=== PATIENT | female | born 1980 | race Hispanic/Latino ===

== ENCOUNTER 2018-07-07 14:17 | Emergency (ER) | payer SELFPAY ==
[2018-07-07] MEDS ORDERED: HYDROcodone/Acetaminophen 5/325 mg Tablet ONE (16:46)
[2018-07-07] MEDS ORDERED: Adacel (T-DAP) 0.5 ML VIAL ONE (16:46)
--- NOTE | 2018-07-07 17:17 | CT ---
CT BRAIN WITHOUT CONTRAST: 07/07/18 HISTORY: Trauma. Head injury. No loss of consciousness. Headache and pain in the neck. FINDINGS: Comparison made with exam of 03/04/12. No evidence of acute infarct, hemorrhage, midline shift or abnormal extra-axial fluid collections are seen. The ventricular size is normal and the basilar cisterns patent. The bony calvarium is intact. There is mucosal disease in the paranasal sinuses. IMPRESSION: No CT evidence of acute intracranial process. POS: [facility]
== END 2018-07-07 17:58 | disposition home or self-care (01) ==
LOC: ERS 14:17
DX: S01.01XA Laceration without foreign body of scalp, initial encounter (principal); E11.9 Type 2 diabetes mellitus without complications; E78.5 Hyperlipidemia, unspecified; I10 Essential (primary) hypertension; F17.210 Nicotine dependence, cigarettes, uncomplicated; Z79.84 Long term (current) use of oral hypoglycemic drugs
CPT/HCPCS: 12001; 70450; 90471; 90715

== ENCOUNTER 2019-01-15 07:10 | Emergency (ER) | payer SELFPAY ==
[2019-01-15] MEDS ORDERED: Ketorolac Tromethamine 60 MG/2 ML VIAL ONE (07:31)
== END 2019-01-15 07:36 | disposition home or self-care (01) ==
LOC: SCSER 07:10
DX: K04.7 Periapical abscess without sinus (principal); E11.9 Type 2 diabetes mellitus without complications; F17.210 Nicotine dependence, cigarettes, uncomplicated; Z79.84 Long term (current) use of oral hypoglycemic drugs
CPT/HCPCS: 99282; J1885

== ENCOUNTER 2019-04-13 07:41 | Outpatient (CLI) | payer MEDICAID ==
--- NOTE | 2019-04-13 08:49 | ULT ---
PELVIC SONOGRAM TRANSABDOMINAL AND TRANSVAGINAL IMAGING: HISTORY: Pelvic pain. FINDINGS: The urinary bladder is decompressed. Uterus has a heterogeneous echotexture and is 9.1 cm. Endometr ium is 0.7 cm. No free fluid. The right ovary measures up to 5.0 cm with a dominant follicle. Good color and spectral Doppler flow . Left ovary not visualized with transabdominal or transvaginal imaging. IMPRESSION: No significant abnormalities are demonstrated. POS: [facility]
== END 2019-04-13 07:42 | disposition home or self-care (01) ==
LOC: BICULT 07:41
DX: R10.2 Pelvic and perineal pain (principal)
CPT/HCPCS: 76856

== ENCOUNTER 2019-07-06 17:26 | Emergency (ER) | payer MEDICAID ==
[2019-07-06 18:12] LABS: Bilirubin Negative (Negative); Blood, Urine Negative (Negative); Clarity Clear (Clear); Glucose, Urine (Dipstick) 250 mg/dL (Negative); Leukocyte Negative (Negative); Nitrite Negative (Negative); Protein, Urine (Dipstick) Negative (Neg-Trace); Urobilinogen 0.2 mg/dL (Less than 2)
== END 2019-07-06 19:07 | disposition home or self-care (01) ==
LOC: SCSER 17:26
DX: O99.89 Other specified diseases and conditions complicating pregnancy, childbirth and the puerperium (principal); R10.2 Pelvic and perineal pain; O99.281 Endocrine, nutritional and metabolic diseases complicating pregnancy, first trimester; E78.5 Hyperlipidemia, unspecified; O10.911 Unspecified pre-existing hypertension complicating pregnancy, first trimester; O99.341 Other mental disorders complicating pregnancy, first trimester; F41.9 Anxiety disorder, unspecified; O24.111 Pre-existing type 2 diabetes mellitus, in pregnancy, first trimester; O99.331 Smoking (tobacco) complicating pregnancy, first trimester; F17.210 Nicotine dependence, cigarettes, uncomplicated; Z3A.01 Less than 8 weeks gestation of pregnancy; Z79.84 Long term (current) use of oral hypoglycemic drugs
CPT/HCPCS: 36415; 36416; 81003; 84702

== ENCOUNTER 2019-07-09 15:09 | Emergency (ER) | payer MEDICAID, OTHER, SELFPAY ==
[2019-07-09 16:39] LABS: #Basophils 0.1 thou/uL (0.0-0.2); #Eosinphils 0.3 thou/uL (0.0-0.7); #Lymphocytes 3.3 thou/uL (1.20-3.40); #Monocytes 0.6 thou/uL (0.11-0.59); #Neutrophils 8.8 thou/uL (1.40-6.50); %Basophils 1.1 % (0.0-1.0); %Eosinophils 1.9 % (0.0-10.0); %Lymphocytes 25.2 % (21.0-51.0); %Monocytes 4.4 % (0.0-10.0); %Neutrophils 67.3 % (42.0-75.0); Hemoglobin 13.9 g/dL (12.0-16.0); Mean Corpuscular HGB CONC 33.6 g/dL (32.0-36.0); Mean Corpuscular Hemoglobin 29.4 pg (27.0-31.0); Mean Corpuscular Volume 87.5 fL (78.0-98.0); Mean Platelet Volume 13.2 fL (7.4-10.4); Platelet Count 275 thou/uL (130-400); Platelet Morphology Comment Appears Adequate; RBC Distribution Width 11.5 % (11.5-14.5); Red Blood Cell (RBC) Count 4.72 mill/uL (4.20-5.40)
--- NOTE | 2019-07-09 18:04 | ULT ---
EXAM: Transabdominal and transvaginal pelvic ultrasound with Doppler PROVIDED CLINICAL HISTORY: Pelvic pain, positive test COMPARISON: None FINDINGS: Uterus measures about 9.7 x 3.9 x 5.1 cm. There is diminished echogenicity seen within the uterine en dometrial canal near the fundus. No evidence for discrete yolk sac or pole. The right and left ovaries appear sonographically normal. There is no evidence for adnexal mass. [place] r Doppler and spectral analysis of the ovarian waveforms demonstrates probable flow bilaterally with limitations due to patient body habitus. There is no evidence for free pelvic fluid. IMPRESSION: Hypoechoic focus in the uterine endometrial canal could reflect an early gestational sac. Pseudogesta tional sac could also be considered. Correlate with serial follow-up beta hCG values.
== END 2019-07-09 18:47 | disposition home or self-care (01) ==
LOC: SCSER 15:09
DX: O99.89 Other specified diseases and conditions complicating pregnancy, childbirth and the puerperium (principal); R10.2 Pelvic and perineal pain; O24.911 Unspecified diabetes mellitus in pregnancy, first trimester; O99.341 Other mental disorders complicating pregnancy, first trimester; F41.9 Anxiety disorder, unspecified; O16.1 Unspecified maternal hypertension, first trimester; O99.351 Diseases of the nervous system complicating pregnancy, first trimester; G51.0 Bell's palsy; O99.331 Smoking (tobacco) complicating pregnancy, first trimester; Z3A.01 Less than 8 weeks gestation of pregnancy; F17.210 Nicotine dependence, cigarettes, uncomplicated
CPT/HCPCS: 76856; 84702; 85025; 96360; 96361

== ENCOUNTER 2020-02-28 11:16 | Inpatient (IN) | payer OTHER ==
[2020-02-28 12:24] VITALS: BMI 43.4
[2020-02-28] MEDS: Lactated Ringer's 1,000 ML IV SCH ×3 (12:54→14:15)
[2020-02-28] MEDS ORDERED: Promethazine HCl 25 MG/ML VIAL IM PRN ×2 (14:02→17:32)
[2020-02-28] MEDS ORDERED: Ondansetron PF 4 MG/2 ML Vial IVP PRN ×3 (14:02→17:53)
[2020-02-28] MEDS ORDERED: hydrALAZINE 20 MG/ML VIAL SLOW IVP PRN ×2 (14:02→17:53)
[2020-02-28] MEDS ORDERED: Vancomycin 1 GM in Premix Bag 1 BAG IVPB SCH (14:15)
[2020-02-28] MEDS ORDERED: Clindamycin/D5W 900 MG in Premix Bag 1 BAG IVPB SCH (14:15)
[2020-02-28] MEDS ORDERED: Bicitra 30 ML UDCUP PO SCH (14:15)
[2020-02-28 14:37] LABS: Hemoglobin 13.8 g/dL (12.0-16.0); Mean Corpuscular HGB CONC 34.3 g/dL (32.0-36.0); Mean Corpuscular Hemoglobin 30.1 pg (27.0-31.0); Mean Corpuscular Volume 87.8 fL (78.0-98.0); RBC Distribution Width 13.7 % (11.5-14.5); White Blood Cell (WBC) Count 7.7 thou/uL (4.8-10.8)
[2020-02-28 14:59] LABS: Mean Platelet Volume 13.5 fL (7.4-10.4); Platelet Count 140 thou/uL (130-400)
[2020-02-28 15:13] LABS: Syphilis Antibody Nonreactive (Nonreactive); Syphilis Antibody Index 0.03 S/CO (<1.00 Non-Reactive)
[2020-02-28 15:23] LABS: HBSAg Index 0.14 S/CO (0-0.99); Hep B Surf Ag Non-Reactive S/CO (NonReactive)
[2020-02-28] MEDS ORDERED: MORPHINE 5 MG/10 ML PF VIAL ONE (16:08)
[2020-02-28] MEDS ORDERED: Oxytocin 10 UNITS/ML VIAL ONE (16:08)
[2020-02-28] MEDS ORDERED: PHENYLEPHRINE-NS 100 MCG/ML 10 ML SYRINGE ONE (16:08)
[2020-02-28] MEDS ORDERED: Naloxone HCl 0.4 mg/ml Vial IV PRN (17:32)
[2020-02-28] MEDS ORDERED: diphenhydrAMINE 50 MG/ML VIAL IVP PRN (17:32)
[2020-02-28] MEDS ORDERED: Promethazine HCl 25 MG SUPP PR PRN (17:32)
[2020-02-28] MEDS ORDERED: Ondansetron HCl/PF 4 MG/2 ML Vial IVP PRN (17:32)
[2020-02-28] MEDS ORDERED: Naloxone HCl 0.4 mg/ml Vial IVP PRN ×2 (17:32)
[2020-02-28] MEDS ORDERED: HYDROmorphone 2 MG/ML VIAL SLOW IVP PRN (17:32)
[2020-02-28] MEDS ORDERED: Meperidine HCl/PF 25 MG/ML VIAL SLOW IVP PRN (17:32)
[2020-02-28] MEDS ORDERED: L&D-Morphine 4 MG/ML VIAL SLOW IVP PRN (17:32)
[2020-02-28] MEDS ORDERED: Ketorolac Tromethamine 30 MG/ML VIAL IVP SCH (17:45)
[2020-02-28] MEDS ORDERED: Communication Order-Pharmacy FS SCH (17:45)
[2020-02-28] MEDS ORDERED: HYDROcodone/Acetaminophen 5/325 mg Tablet PO PRN (17:53)
[2020-02-28] MEDS ORDERED: Lanolin Ointment 7 GM TUBE TOP PRN (17:53)
[2020-02-28] MEDS ORDERED: diphenhydrAMINE 25 MG CAP PO PRN (17:53)
[2020-02-28] MEDS ORDERED: NS / Oxytocin 40 units/1000ml 1,000 ML ONE (18:07)
[2020-02-28] MEDS ORDERED: Ondansetron PF 4 MG/2 ML Vial ONE (18:45)
[2020-02-28] MEDS ORDERED: EPINEPHrine 1 MG/ML AMP ONE (18:45)
[2020-02-28] MEDS ORDERED: Meperidine HCl/PF 25 MG/ML VIAL ONE (19:53)
[2020-02-29 01:09] LABS: ALT (SGPT) 12 U/L (8-55); AST (SGOT) 14 U/L (5-34); Albumin 3.3 g/dL (3.5-5.0); Alkaline Phosphatase 231 U/L (40-110); Anion Gap 15 mmol/L (10-20); BUN (Urea Nitrogen) 14 mg/dL (7.0-18.7); Bilirubin, Total 0.3 mg/dL (0.2-1.2); Calc. Creatinine Clearance 192 mL/min (70-130); Carbon Dioxide 17 mmol/L (22-29); Chloride 107 mmol/L (98-107); Estimated GFR-MDRD Greater than 90; Globulin 2.8 g/dL (2.4-3.5); Glucose 92 mg/dL (70-105); Potassium 4.1 mmol/L (3.5-5.1); Protein, Total 6.1 g/dL (6.0-8.3); Sodium 135 mmol/L (136-145)
[2020-02-29] MEDS: Lactated Ringer's 1,000 ML IV SCH (02:00)
[2020-02-29] MEDS: Ketorolac Tromethamine 30 MG/ML VIAL IVP PRN ×2 (02:06→08:58)
[2020-02-29] MEDS: Enoxaparin Sodium 40 MG/0.4 ML SYRINGE SC SCH (05:01)
[2020-02-29 05:45] LABS: Hemoglobin 12.7 g/dL (12.0-16.0); Mean Corpuscular HGB CONC 33.8 g/dL (32.0-36.0); Mean Corpuscular Hemoglobin 30.1 pg (27.0-31.0); Mean Platelet Volume 12.8 fL (7.4-10.4); Platelet Count 120 thou/uL (130-400); RBC Distribution Width 13.8 % (11.5-14.5); Red Blood Cell (RBC) Count 4.24 mill/uL (4.20-5.40); White Blood Cell (WBC) Count 9.3 thou/uL (4.8-10.8)
[2020-02-29] MEDS ORDERED: Adacel (T-DAP) 0.5 ML SYRINGE IM ONE (09:00)
[2020-02-29] MEDS: Ibuprofen 800 MG TAB PO SCH (16:37)
[2020-02-29] MEDS: Simethicone Chewable 80 MG TAB PO PRN (16:37)
[2020-02-29] MEDS: HYDROcodone/Acetaminophen 5/325 mg Tablet PO PRN (16:37)
--- NOTE | 2020-02-29 18:14 | OP ---
DATE OF PROCEDURE: 02/28/2020 TIME OF PROCEDURE: 1642 hours central daylight savings time. PREOPERATIVE DIAGNOSIS: Intrauterine at 37 weeks and 4 days with a history of type 2 diabetes and a new development of preeclampsia without severe features. POSTOPERATIVE DIAGNOSIS: Intrauterine at 37 weeks and 4 days with a history of type 2 diabetes and a new development of preeclampsia without severe features. PROCEDURE PERFORMED: Repeat 3rd low-transverse section. FINDINGS: Viable male infant, weighing 3703 g or 8 pounds 3 ounces, Apgars 8 and 9. QUANTITATIVE BLOOD LOSS: 507 mL. COMPLICATIONS: None. DETAILS OF THE PROCEDURE: The patient was consented and taken back to the operating room where spinal anesthesia was found to be adequate. She was then prepped and draped in the normal sterile fashion. A timeout was performed by the entire operative team. The incision was then marked with a marking pen tested using sharp pickups. An incision was then made with a scalpel. The incision was carried through the adipose tissue down to the underlying rectus fascia using both sharp dissection as well as cautery. Once the fascia was identified, it was incised in the midline and then the fascial incision was carried through in both lateral directions using sharp as well as cautery dissection techniques. Next, the superior aspect of the rectus fascia was grasped with 2 Mando clamps, which was tented up and the rectus muscles were dissected off using blunt dissection as well as cautery dissection. Similarly, the inferior aspect of the fascial incision was grasped with 2 Mando clamps, tented up and the rectus muscles were dissected off bluntly as well as sharply. Next, the rectus muscles were in the midline and the peritoneum identified. The peritoneum was then carefully grasped with 2 hemostats and entered sharply. The peritoneal incision was extended superiorly and inferiorly and bladder blade was placed in the lower abdomen. At this point, the uterus was identified and the bladder flap was then developed using pickups with teeth as well as Metzenbaum scissors in both lateral directions. The bladder flap was then dissected downwards using the laminating machine operator's finger as well as Metzenbaum scissors. The bladder blade was replaced. The lower uterine segment was then identified and entered sharply using a clean scalpel. The uterine incision was then dissected downwards until thin layer of muscle remained and this was entered bluntly using a hemostat to avoid any injury to the baby. The uterine incision was then stretched using two fingers in both lateral directions. An amniotomy was performed artificially using a hemostat and the baby was delivered using fundal pressure in a gentle fashion. Once out, the baby's mouth and nose were bulb suctioned, cord clamped and cut, and the baby was handed to waiting attendants. Next, the uterus was exteriorized, cleared of all clots and debris and the uterine incision was repaired with #1 Monocryl in a running locking fashion. A 2nd suture of the same type was used to obtain complete hemostasis at the uterine incision. The bladder flap was reapproximated using 3-0 Monocryl. Next, patient's left and right adnexa were inspected and appeared to be within normal limits. The posterior cul-de-sac was blotted dry and hemostasis assured. One more look at the uterine incision demonstrated hemostasis. Next, the uterus was replaced back within the abdomen. The peritoneum was reapproximated using 2-0 Monocryl without difficulty. The rectus muscles were then allowed to come back together and 0 chromic was used to aid in reapproximation of the muscle as necessary. The rectus fascia was then reapproximated in a running fashion using 0 Vicryl suture. The adipose tissue was then examined and appeared to be well approximated without any obvious separations. Finally, the skin was reapproximated with 3-0 Monocryl on a Gilberto needle without difficulty and Dermabond adhesive was applied to the skin. Once the glue was dry, the drapes were removed and the patient was transferred to an ambulatory bed where she was taken to recovery awake and in stable condition. Sponge, lap, and needle counts were correct x3. Job ID: [id number]
--- NOTE | 2020-02-29 19:02 | PDOC.PP ---
Post Progress Note Post Day #: 1 PO intake tolerated: yes Flatus: yes Ambulation: yes Vital Signs (12 hours) Temp Pulse Resp BP 02/29/20 16:00 98.9 F 86 18 137/64 02/29/20 12:00 98.0 F 80 18 145/68 H Weight Weight 230 lb - Physical Examination General: NAD Cardiovascular: no m/r/g Respiratory: non-labored breathing Abdominal: + bowel sounds, lochia, no distention Extremities: negative homans (B) Skin: CS incision dry & intact, no rash Neurological: no gross focal deficits Psychiatric: A&Ox3, normal affect Result Diagrams: 02/29/20 05:25 02/28/20 14:11 Additional Labs: Post Labs Blood Type O NEGATIVE 02/28/20 14:17 Hep Bs Antigen Non-Reactive S/CO (NonReactive) 02/28/20 14:17
--- NOTE | 2020-02-29 19:05 | PDOC.LDHP ---
Labor and Delivery H&P HPI: 39 y/o at 37 and 5/7 weeks presents to L&D after GDM weekly testing in the office, where now elevated BP and Urine protein suggested a new diagnosis of preeclampsia without severe features. On L&D, patient has had non- reassuring heart tones, and we had decided to proceed with immediately. Current gestational age (weeks): 37 Due date: 03/16/20 Grav: 4 Para: 2 Current complications: gestational diabetes, preeclampsia without severe features Abnormal US findings: No Current medications: pre-buddy vitamins Previous surgical history: low tranverse CS Allergies/Adverse Reactions: Allergies Allergy/AdvReac Type Severity Reaction Status Date / Time cephalexin monohydrate Allergy Unknown Anaphylaxis Verified 02/28/20 12:19 [From Keflex] sulfamethoxazole Allergy Unknown Verified 11/19/19 08:28 [From Bactrim] trimethoprim [From Bactrim] Allergy Unknown Anaphylaxis Verified 02/28/20 12:19 Social history: none - Physical Exam Vital signs reviewed and normal: yes General: NAD Heart: RRR Lungs: CTAB Abdomen: gravid Extremeties: no edema FHT: category 1 - Plan Plan: admit to L&D, to OR for section
[2020-03-01] MEDS: Ibuprofen 800 MG TAB PO SCH ×3 (02:21→18:03)
[2020-03-01] MEDS: HYDROcodone/Acetaminophen 5/325 mg Tablet PO PRN ×5 (02:23→22:14)
[2020-03-01] MEDS: Enoxaparin Sodium 40 MG/0.4 ML SYRINGE SC SCH (05:14)
[2020-03-01] MEDS: Simethicone Chewable 80 MG TAB PO PRN ×3 (08:07→22:14)
--- NOTE | 2020-03-01 18:26 | PDOC.PP ---
Post Progress Note Post Day #: 2 PO intake tolerated: yes Flatus: yes Ambulation: yes Vital Signs (12 hours) Temp Pulse Resp BP Pulse Ox 03/01/20 16:53 98.3 F 77 12 142/68 H 98 03/01/20 13:12 98.0 F 74 18 143/71 H 03/01/20 09:38 97 03/01/20 08:14 98.1 F 82 18 130/71 97 Weight Weight 230 lb - Physical Examination General: NAD Cardiovascular: no m/r/g, RRR Respiratory: clear to auscultation bilaterally Abdominal: + bowel sounds, lochia, no distention Extremities: negative homans (B) Skin: CS incision dry & intact, no rash Neurological: no gross focal deficits (DC planned in am.) Psychiatric: A&Ox3, normal affect Result Diagrams: 02/29/20 05:25 02/28/20 14:11 Additional Labs: Post Labs Blood Type O NEGATIVE 02/28/20 14:17 Hep Bs Antigen Non-Reactive S/CO (NonReactive) 02/28/20 14:17
[2020-03-02] MEDS: HYDROcodone/Acetaminophen 5/325 mg Tablet PO PRN ×2 (02:24→08:57)
[2020-03-02] MEDS: Ibuprofen 800 MG TAB PO SCH ×2 (02:25→08:57)
[2020-03-02] MEDS: Enoxaparin Sodium 40 MG/0.4 ML SYRINGE SC SCH (05:01)
[2020-03-02 08:17] VITALS: TEMP 98
[2020-03-02] MEDS: Simethicone Chewable 80 MG TAB PO PRN (08:57)
[2020-03-02 11:19] VITALS: BP 139/59
== END 2020-03-02 13:47 | disposition home or self-care (01) | DRG 788 ==
LOC: L&D 11:16 → 3SW 22:43
PROVIDERS: ADMIT Obstetrics & Gynecology; ATTEND Obstetrics & Gynecology
PROC: 10D00Z1 Extraction of Products of Conception, Low, Open Approach (ICD-10-PCS; principal; 2020-02-29)
DX: O14.04 Mild to moderate pre-eclampsia, complicating childbirth (principal); O24.420 Gestational diabetes mellitus in childbirth, diet controlled; O76 Abnormality in fetal heart rate and rhythm complicating labor and delivery; O34.211 Maternal care for low transverse scar from previous cesarean delivery; Z3A.37 37 weeks gestation of pregnancy; Z88.1 Allergy status to other antibiotic agents; Z37.0 Single live birth
CPT/HCPCS: 36415; 51702; 80053; 85027; 86780; 86850; 86900; 86901; 87340; J0171; J1650; J1885; J2175; J2274; J2405; J2550; J2590; J3370; J3490

== ENCOUNTER 2023-03-26 10:52 | Outpatient (CLI) | payer MEDICAID, OTHER | END 2023-03-26 10:53 | disposition home or self-care (01) | LOC: BICMAMMO 10:52 | PROVIDERS: ATTEND Student in an Organized Health Care Education/Training Program | DX: Z12.31 Encounter for screening mammogram for malignant neoplasm of breast (principal) | CPT/HCPCS: 77067 ==

== ENCOUNTER 2023-09-12 21:00 | Emergency (ER) | payer OTHER, SELFPAY ==
[2023-09-12] MEDS ORDERED: Lidocaine 1% w/Epinephrine 1:100K 20 ML VIAL ONE (22:03)
[2023-09-12] MEDS ORDERED: Boostrix 0.5 ML (Tdap) VIAL (>/=7 yrs of age) ONE (22:04)
== END 2023-09-12 22:29 | disposition home or self-care (01) ==
LOC: ERS 21:00
DX: S01.511A Laceration without foreign body of lip, initial encounter (principal); E11.9 Type 2 diabetes mellitus without complications; E78.5 Hyperlipidemia, unspecified; F17.210 Nicotine dependence, cigarettes, uncomplicated; Y04.2XXA Assault by strike against or bumped into by another person, initial encounter; Z79.84 Long term (current) use of oral hypoglycemic drugs; Z23 Encounter for immunization; Z79.899 Other long term (current) drug therapy
CPT/HCPCS: 12011; 90471; 90715

== ENCOUNTER 2023-09-18 18:54 | Emergency (ER) | payer SELFPAY | END 2023-09-18 20:41 | disposition home or self-care (01) | LOC: ERS 18:54 | DX: S01.511D Laceration without foreign body of lip, subsequent encounter (principal); E11.9 Type 2 diabetes mellitus without complications; F17.210 Nicotine dependence, cigarettes, uncomplicated ==